=== PATIENT | female | born 1965 | race Caucasian/White ===

== ENCOUNTER 2019-01-14 15:23 | Emergency (ER) | payer BC ==
[2019-01-14 16:37] VITALS: BP 116/71
--- NOTE | 2019-01-14 17:09 | ED ---
Throat Pain/Nasal Congestion - HPI Summary HPI Summary: 53 yr old with the complaint of right sided facial swelling and mild pain. Onset over past three days. She had filler put in her face in the area three months ago. She has not had fever or chills. She has mild nasal congestion. No trouble swallowing. No change in voice. - History of Current Complaint Chief Complaint: UCGeneralIllness Time Seen by Provider: 01/14/19 16:50 - Allergies/Home Medications Allergies/Adverse Reactions: Allergies Allergy/AdvReac Type Severity Reaction Status Date / Time No Known Allergies Allergy Verified 01/14/19 16:38 PMH/Surg Hx/FS Hx/Imm Hx - Surgical History Surgery Procedure, Year, and Place: VARICOSE VEIN SX. BREAST ENHANCEMENT Infectious Disease History: No Infectious Disease History: Denies: Traveled Outside the [place] in Last 30 Days - Family History Known Family History: Positive: Hypertension, Respiratory Disease - Social History Occupation: Employed Full-time Alcohol Use: Weekly Substance Use Type: Reports: None Smoking Status (MU): Never Smoked Tobacco Review of Systems Constitutional: Negative Positive: Other - right side parotid gland swelling All Other Systems Reviewed And Are Negative: Yes Physical Exam Triage Information Reviewed: Yes Vital Signs On Initial Exam: Initial Vitals Temp Pulse Resp BP Pulse Ox 98.6 F 63 16 116/71 100 01/14/19 16:34 01/14/19 16:34 01/14/19 16:34 01/14/19 16:34 01/14/19 16:34 Vital Signs Reviewed: Yes Appearance: Positive: Well-Appearing, No Pain Distress Skin: Positive: Warm, Skin Color Reflects Adequate Perfusion Head/Face: Positive: Normal Head/Face Inspection Eyes: Positive: EOMI ENT: Positive: Pharynx normal, TMs normal, Other - right parotid glad mild enlarged with mild tenderness. Teeth appear within Normal limits without gingival swelling. She has no redness to skin of face.. Negative: Sinus tenderness Neck: Positive: Supple, Nontender Respiratory/Lung Sounds: Positive: Clear to Auscultation, Breath Sounds Present Cardiovascular: Positive: RRR. Negative: Murmur Abdomen Description: Negative: Distended Musculoskeletal: Positive: Strength/ROM Intact Neurological: Positive: Sensory/Motor Intact, Alert, Oriented to Person Place, Time, CN Intact II-III, Normal Gait, Speech Normal Psychiatric: Positive: Normal Diagnostics - Vital Signs Vital Signs Temp Pulse Resp BP Pulse Ox 01/14/19 16:34 98.6 F 63 16 116/71 100 - Laboratory Lab Statement: Any lab studies that have been ordered have been reviewed, and results considered in the medical decision making process. EENT Course/Dx - Course Course Of Treatment: 53 yr old with probable sialoadenitis, but also could have some localized reaction to the facial filler put in her face. She will see Dr Bender in follow up. - Diagnoses Provider Diagnoses: Sialoadenitis Discharge ED - Sign-Out/Discharge Documenting (check all that apply): Patient Departure All imaging exams completed and their final reports reviewed: No Studies - Discharge Plan Condition: Good Disposition: HOME Prescriptions: Amoxicillin/Clavulanate TAB* [Augmentin TAB 875*] 875 mg PO BID #20 tab Patient Education Materials: Sialoadenitis (ED) Referrals: Cherie Neumann MD [Primary Care Provider] - Rogerio Bender MD [Medical Doctor] - 1 Day - Billing Disposition and Condition Condition: GOOD Disposition: Home
== END 2019-01-14 17:08 | disposition home or self-care (01) ==
LOC: UCCORT 15:23
DX: K11.20 Sialoadenitis, unspecified (principal)
CPT/HCPCS: 99212; G0463